=== PATIENT | female | born 1950 | race Caucasian/White ===

== ENCOUNTER 2021-08-01 16:24 | Observation (INO) | payer MEDICARE ==
[2021-08-01 16:47] LABS: #Basophils 0.1 10x3/uL (0.0-0.2); #Eosinphils 0.5 10x3/uL (0.0-0.5); #Monocytes 0.7 10x3/uL (0.0-1.1); #Neutrophils 5.7 10x3/uL (1.5-8.4); %Basophils 0.6 % (0.0-2.0); %Eosinophils 4.9 % (0.0-6.0); %Lymphocytes 33.3 % (18.0-47.0); %Monocytes 6.5 % (0.0-10.0); %Neutrophils 54.3 % (40.0-75.0); Hemoglobin 14.2 g/dL (12.0-15.5); Mean Corpuscular HGB CONC 32.9 g/dL (32.0-36.0); Mean Corpuscular Hemoglobin 29.5 pg (27.0-33.0); Mean Corpuscular Volume 89.6 fl (81.6-98.3); Mean Platelet Volume 10.4 fl (7.4-10.4); Platelet Count 278 10x3/uL (150-450); RBC Distribution Width 12.2 % (11.5-14.5); Red Blood Cell (RBC) Count 4.81 10x6/uL (3.90-5.03); White Blood Cell (WBC) Count 10.4 10x3/uL (3.5-10.5)
[2021-08-01 17:03] LABS: PTT 27.1 sec (22.0-33.0); Prothrombin Time 11.4 sec (9.5-12.1)
[2021-08-01 17:06] LABS: ALT (SGPT) 36 U/L (8-55); AST (SGOT) 30 U/L (5-34); Albumin 4.3 g/dL (3.4-4.8); Alkaline Phosphatase 69 U/L (40-110); Anion Gap 15 mmol/L (10-20); BUN (Urea Nitrogen) 14 mg/dL (9.8-20.1); Bilirubin, Total 0.4 mg/dL (0.2-1.2); Calc. Creatinine Clearance 0 mL/min (70-130); Calcium 9.1 mg/dL (7.8-10.44); Carbon Dioxide 25 mmol/L (23-31); Chloride 102 mmol/L (98-107); Globulin 3.4 g/dL (2.4-3.5); Glucose 156 mg/dL (80-115); Potassium 3.7 mmol/L (3.5-5.1); Protein, Total 7.7 g/dL (5.8-8.1); Sodium 138 mmol/L (136-145)
[2021-08-01] MEDS ORDERED: Ondansetron PF 4 MG/2 ML Vial ONE (17:23)
[2021-08-01] MEDS ORDERED: ALPRAZolam 0.5 MG TAB PO PRN (17:39)
[2021-08-01] MEDS ORDERED: hydrALAZINE 20 MG/ML VIAL SLOW IVP PRN (17:41)
[2021-08-01] MEDS ORDERED: Aspirin Chewable 81 MG TAB ONE (17:53)
[2021-08-01 18:24] LABS: Bilirubin Neg (Negative); Blood, Urine Negative (Negative); Clarity Clear (Clear); Glucose, Urine (Dipstick) Normal (Negative); Ketone, Urine Negative (Negative); Leukocyte Negative (Negative); Nitrite Negative (Negative); Protein, Urine (Dipstick) Negative (Neg-Trace); Urobilinogen Normal mg/dL (Less than 2)
[2021-08-01 19:44] VITALS: BMI 38.7
[2021-08-01] MEDS ORDERED: Amlodipine 10 MG TAB PO SCH (21:00)
[2021-08-01] MEDS: Carvedilol 6.25 MG TAB PO SCH (21:00)
[2021-08-01] MEDS ORDERED: Atorvastatin Calcium 40 MG TAB PO SCH (21:00)
[2021-08-01] MEDS ORDERED: Enoxaparin Sodium 40 MG/0.4 ML SYRINGE SC SCH (21:00)
[2021-08-02 05:16] LABS: #Basophils 0.1 10x3/uL (0.0-0.2); #Eosinphils 0.5 10x3/uL (0.0-0.5); #Monocytes 0.6 10x3/uL (0.0-1.1); %Basophils 0.5 % (0.0-2.0); %Eosinophils 4.7 % (0.0-6.0); %Lymphocytes 36.4 % (18.0-47.0); %Monocytes 6.4 % (0.0-10.0); %Neutrophils 51.7 % (40.0-75.0); Hemoglobin 13.6 g/dL (12.0-15.5); Mean Corpuscular HGB CONC 32.4 g/dL (32.0-36.0); Mean Corpuscular Hemoglobin 29.1 pg (27.0-33.0); Mean Corpuscular Volume 89.7 fl (81.6-98.3); Mean Platelet Volume 10.6 fl (7.4-10.4); Platelet Count 247 10x3/uL (150-450); RBC Distribution Width 12.5 % (11.5-14.5); Red Blood Cell (RBC) Count 4.68 10x6/uL (3.90-5.03); White Blood Cell (WBC) Count 9.6 10x3/uL (3.5-10.5)
[2021-08-02 05:39] LABS: Anion Gap 15 mmol/L (10-20); BUN (Urea Nitrogen) 13 mg/dL (9.8-20.1); Calc. Creatinine Clearance 127 mL/min (70-130); Carbon Dioxide 27 mmol/L (23-31); Cardiac Risk 4.4 (Less than 4.5); Chloride 103 mmol/L (98-107); Cholesterol 149 mg/dl (< 200 Desired); Glucose 140 mg/dL (80-115); HDL Cholesterol 34 mg/dL (>60 Neg Risk); LDL Cholesterol, Calculated 88 mg/dL; Potassium 3.9 mmol/L (3.5-5.1); Sodium 141 mmol/L (136-145); Triglycerides 137 mg/dL (Less than 150)
[2021-08-02] MEDS ORDERED: metFORMIN 500 MG TAB PO SCH (08:00)
[2021-08-02] MEDS: Carvedilol 6.25 MG TAB PO SCH (08:17)
[2021-08-02] MEDS ORDERED: Hydrochlorothiazide 25 MG TAB PO SCH (09:00)
[2021-08-02] MEDS ORDERED: Aspirin 81 mg Enteric Coated Tablet PO SCH (09:00)
[2021-08-02] MEDS ORDERED: DULoxetine 30 MG CAP PO SCH (09:00)
[2021-08-02] MEDS ORDERED: Enoxaparin Sodium 40 MG/0.4 ML SYRINGE SC SCH (09:00)
[2021-08-02] MEDS ORDERED: Acetaminophen 325 MG TAB PO PRN (10:48)
[2021-08-02 11:51] VITALS: BP 127/59; TEMP 98.7
[2021-08-02 14:45] LABS: SARS-CoV-2 PCR by NAA Not Detected (NotDetected)
== END 2021-08-02 13:30 | disposition home or self-care (01) ==
LOC: CSHERS 16:24 → CSHTELE 19:41
PROVIDERS: ADMIT Internal Medicine; ATTEND Physician Assistant Medical
DX: G45.9 Transient cerebral ischemic attack, unspecified (principal); I10 Essential (primary) hypertension; E11.9 Type 2 diabetes mellitus without complications; F41.9 Anxiety disorder, unspecified; Z79.899 Other long term (current) drug therapy; Z90.49 Acquired absence of other specified parts of digestive tract; Z90.710 Acquired absence of both cervix and uterus; J45.909 Unspecified asthma, uncomplicated; Z20.822 Contact with and (suspected) exposure to COVID-19
CPT/HCPCS: 70450; 70496; 70498; 70551; 71045; 80048; 80053; 80061; 81003; 82962; 84484; 85025 ×2; 85610; 85730; 87086; 93005; 93306; 93880; 96372 ×2; 96374; 99285; G0378 ×3; U0003; U0005; 36416; J1650; J2405

== ENCOUNTER 2021-08-23 13:55 | Observation (INO) | payer MEDICARE ==
[2021-08-23 14:40] LABS: #Basophils 0.1 10x3/uL (0.0-0.2); #Eosinphils 0.7 10x3/uL (0.0-0.5); #Monocytes 0.7 10x3/uL (0.0-1.1); #Neutrophils 5.3 10x3/uL (1.5-8.4); %Basophils 0.7 % (0.0-2.0); %Eosinophils 7.1 % (0.0-6.0); %Lymphocytes 29.5 % (18.0-47.0); %Monocytes 6.8 % (0.0-10.0); %Neutrophils 55.7 % (40.0-75.0); Hemoglobin 13.8 g/dL (12.0-15.5); Mean Corpuscular HGB CONC 32.4 g/dL (32.0-36.0); Mean Corpuscular Volume 89.5 fl (81.6-98.3); Mean Platelet Volume 10.7 fl (7.4-10.4); Platelet Count 225 10x3/uL (150-450); RBC Distribution Width 12.2 % (11.5-14.5); Red Blood Cell (RBC) Count 4.76 10x6/uL (3.90-5.03); White Blood Cell (WBC) Count 9.6 10x3/uL (3.5-10.5)
[2021-08-23] MEDS ORDERED: Ondansetron PF 4 MG/2 ML Vial ONE (14:55)
[2021-08-23 14:56] LABS: Acetaminophen Less than 6.0 mcg/mL (10.0-30.0); Alcohol Less than 10 mg/dL (Less than 10); Salicylate Less than 8.0 mg/dL (15.0-30.0)
[2021-08-23 14:57] LABS: ALT (SGPT) 28 U/L (8-55); AST (SGOT) 27 U/L (5-34); Albumin 3.9 g/dL (3.4-4.8); Alkaline Phosphatase 63 U/L (40-110); Anion Gap 16 mmol/L (10-20); BUN (Urea Nitrogen) 13 mg/dL (9.8-20.1); Bilirubin, Total 0.6 mg/dL (0.2-1.2); Calc. Creatinine Clearance 0 mL/min (70-130); Calcium 9.7 mg/dL (7.8-10.44); Carbon Dioxide 25 mmol/L (23-31); Chloride 99 mmol/L (98-107); Glucose 108 mg/dL (80-115); Potassium 3.6 mmol/L (3.5-5.1); Protein, Total 7.9 g/dL (5.8-8.1); Sodium 136 mmol/L (136-145)
[2021-08-23 16:43] LABS: Bilirubin Neg (Negative); Blood, Urine Negative (Negative); Clarity Clear (Clear); Glucose, Urine (Dipstick) Normal (Negative); Ketone, Urine Negative (Negative); Leukocyte Negative (Negative); Nitrite Negative (Negative); Protein, Urine (Dipstick) 15 mg/dl (Neg-Trace); Specific Gravity, Urine 1.015 (1.002-1.036); Urobilinogen Normal mg/dL (Less than 2); pH, Urine 6.5 (5.0-9.0)
[2021-08-23 16:50] LABS: Amphetamine Not Detected (NotDetected); Barbiturates Screen Not Detected (NotDetected); Benzodiazepine Screen Not Detected (NotDetected); Cocaine Metabolite Screen Not Detected (NotDetected); Methadone Not Detected (NotDetected); Methamphetamine Not Detected (NotDetected); Opiate Screen Not Detected (NotDetected); Oxycodone Screen Not Detected (NotDetected); Phencyclidine (PCP) Not Detected (NotDetected); THC/Cannabinoid Screen Not Detected (NotDetected); Tricyclic Screen Detected (NotDetected)
[2021-08-23] MEDS ORDERED: ALPRAZolam 0.5 MG TAB PO PRN (19:01)
[2021-08-23] MEDS ORDERED: Dextrose 50% Abboject 50 ML SYRINGE SLOW IVP PRN (19:07)
[2021-08-23] MEDS ORDERED: Dextrose 5% in Water 1,000 ML IV PRN (19:07)
[2021-08-23] MEDS ORDERED: HumaLOG 300 UNITS/3 ML VIAL SC PRN (19:07)
[2021-08-23 19:39] VITALS: BMI 36.9
[2021-08-23 19:52] LABS: Troponin I Less than 0.010 ng/mL (< 0.028)
[2021-08-23] MEDS ORDERED: Aspirin 325 MG TAB PO SCH (20:00)
[2021-08-23] MEDS ORDERED: FLU VACC QS2021-22(65YR UP)/PF 240 MCG/0.7 ML SYRINGE IM ONE (20:30)
[2021-08-23] MEDS: Lactated Ringer's 1,000 ML IV SCH (20:58)
[2021-08-23] MEDS ORDERED: Atorvastatin Calcium 40 MG TAB PO SCH (21:00)
[2021-08-23] MEDS ORDERED: Amlodipine 10 MG TAB PO SCH (21:00)
[2021-08-23 23:16] LABS: Troponin I Less than 0.010 ng/mL (< 0.028)
[2021-08-24] MEDS: Lactated Ringer's 1,000 ML IV SCH (07:23)
[2021-08-24] MEDS ORDERED: SEMAGLUTIDE 3 MG PO SCH (07:30)
[2021-08-24] MEDS ORDERED: Carvedilol 6.25 MG TAB PO SCH (08:00)
[2021-08-24 08:57] LABS: INR-International Normal Ratio 1.1; PTT 29.5 sec (22.0-33.0); Prothrombin Time 12.4 sec (9.5-12.1)
[2021-08-24] MEDS ORDERED: Clopidogrel Bisulfate 75 MG TAB PO SCH (09:00)
[2021-08-24] MEDS ORDERED: Aspirin Chewable 81 MG TAB PO SCH (09:00)
[2021-08-24] MEDS ORDERED: Hydrochlorothiazide 25 MG TAB PO SCH (09:00)
[2021-08-24] MEDS ORDERED: Enoxaparin Sodium 40 MG/0.4 ML SYRINGE SC SCH (09:00)
[2021-08-24] MEDS ORDERED: Amlodipine 5 MG TAB PO SCH (09:00)
[2021-08-24] MEDS ORDERED: DULoxetine 30 MG CAP PO SCH (09:00)
[2021-08-24 12:26] VITALS: BP 132/60; TEMP 97.7
[2021-08-24 17:21] LABS: SARS-CoV-2 PCR by NAA Not Detected (NotDetected)
== END 2021-08-24 13:20 | disposition home or self-care (01) ==
LOC: CSHERS 13:55 → INTOOBSV 18:56 → CSHTELE 18:56
PROVIDERS: ADMIT Student in an Organized Health Care Education/Training Program; ATTEND Student in an Organized Health Care Education/Training Program
DX: R07.89 Other chest pain (principal); R53.1 Weakness; E11.9 Type 2 diabetes mellitus without complications; I10 Essential (primary) hypertension; Z86.73 Personal history of transient ischemic attack (TIA), and cerebral infarction without residual deficits; Z85.43 Personal history of malignant neoplasm of ovary; Z79.899 Other long term (current) drug therapy; Z79.02 Long term (current) use of antithrombotics/antiplatelets; Z90.710 Acquired absence of both cervix and uterus; Z90.49 Acquired absence of other specified parts of digestive tract; Z20.822 Contact with and (suspected) exposure to COVID-19
CPT/HCPCS: 70450; 71045; 80053; 80306; 80307; 81003; 82962 ×2; 83036; 83605; 83690; 84484 ×2; 85025; 85610; 85730; 93005; 96372; 99285; G0378 ×2; U0003; U0005; 36415; 36416; J1650; J2405; J7120

== ENCOUNTER 2022-08-09 11:27 | Outpatient (CLI) | payer MEDICARE | END 2022-08-09 11:28 | disposition home or self-care (01) | LOC: CSHRAD 11:27 | PROVIDERS: ATTEND Family Medicine | DX: M25.562 Pain in left knee (principal); W19.XXXA Unspecified fall, initial encounter; Z96.652 Presence of left artificial knee joint ==

== ENCOUNTER 2023-09-27 08:22 | Outpatient (CLI) | payer MEDICARE ==
[2023-09-27] MEDS ORDERED: Iopamidol 300 61% 100 ML VIAL FS ONE (09:32)
== END 2023-09-27 08:23 | disposition home or self-care (01) ==
LOC: CSHCT 08:22
PROVIDERS: ATTEND Internal Medicine Gastroenterology
DX: R10.9 Unspecified abdominal pain (principal); K44.9 Diaphragmatic hernia without obstruction or gangrene; K21.9 Gastro-esophageal reflux disease without esophagitis; K76.0 Fatty (change of) liver, not elsewhere classified; N81.10 Cystocele, unspecified; K62.3 Rectal prolapse; N28.9 Disorder of kidney and ureter, unspecified; K57.30 Diverticulosis of large intestine without perforation or abscess without bleeding
CPT/HCPCS: 74177; 82565; Q9967

== ENCOUNTER 2023-10-09 12:28 | Inpatient (IN) | payer MEDICARE ==
[~2023-10-09 12:28] MED LIST: Iopamidol 300 61% 100 ML VIAL FS ONE
[2023-10-09 13:38] LABS: #Basophils 0.1 10x3/uL (0.0-0.2); #Eosinphils 0.6 10x3/uL (0.0-0.5); #Monocytes 0.9 10x3/uL (0.0-1.1); %Basophils 0.4 % (0.0-2.0); %Eosinophils 4.6 % (0.0-6.0); %Lymphocytes 19.1 % (18.0-47.0); %Monocytes 7.8 % (0.0-10.0); %Neutrophils 67.8 % (40.0-75.0); Hematocrit 42.5 % (34.9-44.5); Mean Corpuscular HGB CONC 32.9 g/dL (32.0-36.0); Mean Corpuscular Hemoglobin 29.2 pg (27.0-33.0); Mean Corpuscular Volume 88.5 fl (81.6-98.3); Mean Platelet Volume 10.7 fl (7.4-10.4); Platelet Count 226 10x3/uL (150-450); RBC Distribution Width 12.4 % (11.5-14.5); White Blood Cell (WBC) Count 11.9 10x3/uL (3.5-10.5)
[2023-10-09 13:57] LABS: ALT (SGPT) 21 U/L (8-55); AST (SGOT) 23 U/L (5-34); Albumin 3.8 g/dL (3.4-4.8); Alkaline Phosphatase 71 U/L (40-110); Anion Gap 13 mmol/L (10-20); BUN (Urea Nitrogen) 9 mg/dL (9.8-20.1); Bilirubin, Total 0.5 mg/dL (0.2-1.2); Calc. Creatinine Clearance 0 mL/min (70-130); Calcium 8.9 mg/dL (7.8-10.44); Carbon Dioxide 27 mmol/L (23-31); Chloride 100 mmol/L (98-107); Estimated GFR 89; Globulin 3.6 g/dL (2.4-3.5); Glucose 153 mg/dL (83-110); Potassium 3.6 mmol/L (3.5-5.1); Protein, Total 7.4 g/dL (5.8-8.1); Sodium 136 mmol/L (136-145)
[2023-10-09] MEDS ORDERED: Morphine 4 MG/ML VIAL ONE ×2 (14:37→18:38)
[2023-10-09] MEDS ORDERED: Ampicillin/Sulbactam 3 GM in Sodium Chloride 0.9% 100 ML IVPB SCH (15:15)
[2023-10-09] MEDS ORDERED: HYDROcodone/Acetaminophen 5/325 mg Tablet ONE (15:18)
[2023-10-09] MEDS ORDERED: Neomycin/Polymyxin/HC Otic Solution 10 ML BOT ONE (15:53)
[2023-10-09] MEDS ORDERED: Dextrose 50% Abboject 50 ML SYRINGE SLOW IVP PRN (17:37)
[2023-10-09] MEDS ORDERED: Glucagon 1 MG/ML KIT IM PRN (17:37)
[2023-10-09] MEDS ORDERED: Dextrose 5% in Water 1,000 ML IV PRN (17:37)
[2023-10-09] MEDS ORDERED: hydrOXYzine 25 MG TAB PO PRN (18:28)
[2023-10-09] MEDS ORDERED: hydrALAZINE 20 MG/ML VIAL SLOW IVP SCH (18:45)
[2023-10-09] MEDS ORDERED: Morphine 2 MG/ML VIAL SLOW IVP SCH (18:45)
[2023-10-09] MEDS ORDERED: dilTIAZem CD 120 MG CAP PO SCH (19:00)
[2023-10-09] MEDS: HYDROcodone/Acetaminophen 5/325 mg Tablet PO PRN (21:34)
[2023-10-09] MEDS: Carvedilol 6.25 MG TAB PO SCH (21:39)
[2023-10-09] MEDS: Atorvastatin Calcium 40 MG TAB PO SCH (21:40)
[2023-10-09] MEDS: Aspirin 81 mg Enteric Coated Tablet PO SCH (21:42)
[2023-10-09] MEDS: Pramipexole Di-HCl 0.25 MG TAB PO SCH (21:44)
[2023-10-09] MEDS: Ampicillin/Sulbactam 3 GM in Sodium Chloride 0.9% 100 ML IVPB SCH (23:36)
[2023-10-10 01:08] VITALS: BMI 36.6
[2023-10-10] MEDS: Clopidogrel Bisulfate 75 MG TAB PO SCH ×2 (05:07→22:03)
[2023-10-10] MEDS: HYDROcodone/Acetaminophen 5/325 mg Tablet PO PRN ×2 (05:10→21:57)
[2023-10-10] MEDS: Ampicillin/Sulbactam 3 GM in Sodium Chloride 0.9% 100 ML IVPB SCH ×4 (05:13→22:05)
[2023-10-10 05:41] LABS: #Basophils 0.1 10x3/uL (0.0-0.2); #Eosinphils 0.4 10x3/uL (0.0-0.5); #Neutrophils 6.4 10x3/uL (1.5-8.4); %Basophils 0.5 % (0.0-2.0); %Eosinophils 4.1 % (0.0-6.0); %Lymphocytes 25.5 % (18.0-47.0); %Monocytes 9.4 % (0.0-10.0); %Neutrophils 60.1 % (40.0-75.0); Hematocrit 42.2 % (34.9-44.5); Mean Corpuscular HGB CONC 33.2 g/dL (32.0-36.0); Mean Corpuscular Hemoglobin 29.4 pg (27.0-33.0); Mean Corpuscular Volume 88.5 fl (81.6-98.3); Mean Platelet Volume 10.5 fl (7.4-10.4); Platelet Count 206 10x3/uL (150-450); RBC Distribution Width 12.4 % (11.5-14.5); Red Blood Cell (RBC) Count 4.77 10x6/uL (3.90-5.03); White Blood Cell (WBC) Count 10.6 10x3/uL (3.5-10.5)
[2023-10-10 05:56] LABS: Anion Gap 12 mmol/L (10-20); BUN (Urea Nitrogen) 8 mg/dL (9.8-20.1); Calc. Creatinine Clearance 103 mL/min (70-130); Calcium 9.3 mg/dL (7.8-10.44); Carbon Dioxide 29 mmol/L (23-31); Chloride 99 mmol/L (98-107); Estimated GFR 90; Glucose 150 mg/dL (83-110); Potassium 3.7 mmol/L (3.5-5.1); Sodium 136 mmol/L (136-145)
[2023-10-10] MEDS: Hydrochlorothiazide 25 MG TAB PO SCH (08:08)
[2023-10-10] MEDS: DULoxetine 30 MG CAP PO SCH (08:08)
[2023-10-10] MEDS: Enoxaparin 40 MG (0.4 mL) SYRINGE SC SCH (08:08)
[2023-10-10] MEDS ORDERED: Clopidogrel Bisulfate 75 MG TAB PO SCH (09:00)
[2023-10-10] MEDS ORDERED: Aspirin 81 mg Enteric Coated Tablet PO SCH (09:00)
[2023-10-10] MEDS ORDERED: diphenhydrAMINE 25 MG CAP PO PRN (10:10)
[2023-10-10] MEDS ORDERED: Sodium Chloride 0.9% 500 ML IV SCH (10:15)
[2023-10-10] MEDS ORDERED: Ketorolac Tromethamine 30 MG (1 mL) VIAL ONE (10:23)
[2023-10-10] MEDS ORDERED: Ketorolac Tromethamine 30 MG (1 mL) VIAL IVP SCH ×2 (10:30→22:00)
[2023-10-10] MEDS ORDERED: Metoclopramide HCl 10 MG (2 mL) VIAL IVP SCH (10:30)
[2023-10-10] MEDS: dilTIAZem CD 120 MG CAP PO SCH (10:37)
[2023-10-10] MEDS: NEOMYCIN-POLYMYXIN-HC EAR SUSP 200 DROP/10 ML BOT L EAR SCH ×3 (10:37→17:30)
[2023-10-10] MEDS: Carvedilol 6.25 MG TAB PO SCH ×2 (10:37→22:05)
[2023-10-10] MEDS: Aspirin 81 mg Enteric Coated Tablet PO SCH (21:58)
[2023-10-10] MEDS: Atorvastatin Calcium 40 MG TAB PO SCH (22:04)
[2023-10-10] MEDS: Pramipexole Di-HCl 0.25 MG TAB PO SCH (22:04)
[2023-10-11 03:50] LABS: #Eosinphils 0.5 10x3/uL (0.0-0.5); #Monocytes 0.7 10x3/uL (0.0-1.1); #Neutrophils 4.4 10x3/uL (1.5-8.4); %Basophils 0.4 % (0.0-2.0); %Eosinophils 6.1 % (0.0-6.0); %Lymphocytes 36.4 % (18.0-47.0); %Monocytes 7.5 % (0.0-10.0); %Neutrophils 49.4 % (40.0-75.0); Hematocrit 38.3 % (34.9-44.5); Hemoglobin 12.3 g/dL (12.0-15.5); Mean Corpuscular HGB CONC 32.1 g/dL (32.0-36.0); Mean Corpuscular Hemoglobin 28.7 pg (27.0-33.0); Mean Corpuscular Volume 89.5 fl (81.6-98.3); Mean Platelet Volume 10.7 fl (7.4-10.4); Platelet Count 198 10x3/uL (150-450); RBC Distribution Width 12.6 % (11.5-14.5); Red Blood Cell (RBC) Count 4.28 10x6/uL (3.90-5.03); White Blood Cell (WBC) Count 8.9 10x3/uL (3.5-10.5)
[2023-10-11] MEDS: NEOMYCIN-POLYMYXIN-HC EAR SUSP 200 DROP/10 ML BOT L EAR SCH ×5 (05:01→20:53)
[2023-10-11] MEDS: Ampicillin/Sulbactam 3 GM in Sodium Chloride 0.9% 100 ML IVPB SCH (05:01)
[2023-10-11] MEDS: Hydrochlorothiazide 25 MG TAB PO SCH (07:50)
[2023-10-11] MEDS: dilTIAZem CD 120 MG CAP PO SCH (07:50)
[2023-10-11] MEDS: DULoxetine 30 MG CAP PO SCH (07:51)
[2023-10-11] MEDS: Carvedilol 6.25 MG TAB PO SCH ×2 (07:51→20:48)
[2023-10-11] MEDS: Enoxaparin 40 MG (0.4 mL) SYRINGE SC SCH (07:52)
[2023-10-11] MEDS ORDERED: Cefuroxime 250 MG TAB PO SCH (10:30)
[2023-10-11] MEDS: HumaLOG 300 UNITS/3 ML VIAL SC PRN ×2 (11:08→21:01)
[2023-10-11] MEDS: Clindamycin 150 MG CAP PO SCH ×2 (12:17→20:47)
[2023-10-11] MEDS: Ibuprofen 200 MG TAB PO SCH ×2 (12:17→20:47)
[2023-10-11] MEDS: HYDROcodone/Acetaminophen 5/325 mg Tablet PO PRN (13:54)
[2023-10-11] MEDS ORDERED: Acetaminophen 325 MG TAB PO PRN (15:30)
[2023-10-11] MEDS ORDERED: Acetaminophen 500 MG TAB PO SCH (16:00)
[2023-10-11] MEDS: Clopidogrel Bisulfate 75 MG TAB PO SCH (20:48)
[2023-10-11] MEDS: Aspirin 81 mg Enteric Coated Tablet PO SCH (20:48)
[2023-10-11] MEDS: Atorvastatin Calcium 40 MG TAB PO SCH (20:48)
[2023-10-11] MEDS: Pramipexole Di-HCl 0.25 MG TAB PO SCH (20:49)
[2023-10-11] MEDS: Cefuroxime 250 MG TAB PO SCH (20:49)
[2023-10-12] MEDS: HYDROcodone/Acetaminophen 5/325 mg Tablet PO PRN (03:21)
[2023-10-12] MEDS: Ibuprofen 200 MG TAB PO SCH ×2 (03:28→11:41)
[2023-10-12] MEDS: Clindamycin 150 MG CAP PO SCH ×2 (03:29→11:42)
[2023-10-12 03:52] LABS: #Basophils 0.1 10x3/uL (0.0-0.2); #Eosinphils 0.7 10x3/uL (0.0-0.5); #Monocytes 0.6 10x3/uL (0.0-1.1); #Neutrophils 3.8 10x3/uL (1.5-8.4); %Basophils 0.6 % (0.0-2.0); %Lymphocytes 39.2 % (18.0-47.0); %Monocytes 7.1 % (0.0-10.0); %Neutrophils 44.6 % (40.0-75.0); Hematocrit 37.1 % (34.9-44.5); Hemoglobin 12.1 g/dL (12.0-15.5); Mean Corpuscular HGB CONC 32.6 g/dL (32.0-36.0); Mean Corpuscular Hemoglobin 28.5 pg (27.0-33.0); Mean Corpuscular Volume 87.3 fl (81.6-98.3); Mean Platelet Volume 10.1 fl (7.4-10.4); Platelet Count 219 10x3/uL (150-450); RBC Distribution Width 12.6 % (11.5-14.5); Red Blood Cell (RBC) Count 4.25 10x6/uL (3.90-5.03); White Blood Cell (WBC) Count 8.4 10x3/uL (3.5-10.5)
[2023-10-12 04:06] LABS: Anion Gap 16 mmol/L (10-20); BUN (Urea Nitrogen) 13 mg/dL (9.8-20.1); CRP (Inflammatory) 2.63 mg/dL (= or < 0.5); Calc. Creatinine Clearance 97 mL/min (70-130); Calcium 8.7 mg/dL (7.8-10.44); Carbon Dioxide 23 mmol/L (23-31); Chloride 102 mmol/L (98-107); Estimated GFR 85; Glucose 141 mg/dL (83-110); Potassium 3.7 mmol/L (3.5-5.1); Sodium 137 mmol/L (136-145)
[2023-10-12 07:56] VITALS: TEMP 97.9
[2023-10-12] MEDS: Hydrochlorothiazide 25 MG TAB PO SCH (08:10)
[2023-10-12] MEDS: DULoxetine 30 MG CAP PO SCH (08:10)
[2023-10-12] MEDS: Cefuroxime 250 MG TAB PO SCH (08:10)
[2023-10-12] MEDS: Enoxaparin 40 MG (0.4 mL) SYRINGE SC SCH (08:10)
[2023-10-12] MEDS: NEOMYCIN-POLYMYXIN-HC EAR SUSP 200 DROP/10 ML BOT L EAR SCH ×2 (08:10→11:42)
[2023-10-12] MEDS: dilTIAZem CD 120 MG CAP PO SCH (08:11)
[2023-10-12] MEDS: Carvedilol 6.25 MG TAB PO SCH (08:11)
[2023-10-12 11:19] VITALS: BP 140/64
== END 2023-10-12 12:00 | disposition home or self-care (01) | DRG 156 ==
LOC: CSHERS 12:28 → CSHERHOLD 15:46 → CSHPP 18:17 → OBSVTOIN 10-11 17:33
PROVIDERS: ADMIT Family Medicine; ATTEND Family Medicine
DX: H60.12 Cellulitis of left external ear (principal); H60.92 Unspecified otitis externa, left ear; E11.9 Type 2 diabetes mellitus without complications; I10 Essential (primary) hypertension; E78.5 Hyperlipidemia, unspecified; I25.10 Atherosclerotic heart disease of native coronary artery without angina pectoris; K21.9 Gastro-esophageal reflux disease without esophagitis; Z88.1 Allergy status to other antibiotic agents; Z91.041 Radiographic dye allergy status; Z79.899 Other long term (current) drug therapy; Z79.82 Long term (current) use of aspirin; Z90.49 Acquired absence of other specified parts of digestive tract; F41.9 Anxiety disorder, unspecified; Z90.710 Acquired absence of both cervix and uterus; Z86.73 Personal history of transient ischemic attack (TIA), and cerebral infarction without residual deficits
CPT/HCPCS: 36415; 36416; 70491; 80048; 80053; 83605; 85025; 86140; 87081; 94660; 94760; 96365; 96375; J0295; J1650; J1815; J1885; J2270; J2765; J3490; J7030